=== PATIENT | male | born 1995 | race Caucasian/White ===

== ENCOUNTER 2020-04-23 05:39 | Emergency (ER) | payer OTHER, SELFPAY ==
[2020-04-23 05:41] VITALS: BP 125/87; PULSE 68; RESP 16; TEMP 36.7; O2SAT 99; BMI 29.1
--- NOTE | 2020-04-23 05:55 | ED_ITS ---
HPI - Skin/Abscess/Foreign Bdy General: Chief complaint: Skin/Abscess/Foreign Body Stated complaint: RASH Time Seen by Provider: 04/23/20 05:55 History of Present Illness: HPI narrative: Patient presents via EMS for a rash that has been waxing and waning for 2 days. Patient describes the rash as red and slightly raised. He states that this morning he looked in the mirror and his face was as red as if he had been sunburned. Patient denies any known exposure and denies any known allergens. MD complaint: rash Onset (ago): day(s) Tetanus up to date: unsure Location: generalized Severity: moderate Pain Consistency: now resolved Relieving factors: none Exacerbating factors: none Context: none Associated symptoms: Reports itching Review of Systems General: Reports: 10 or more systems reviewed and unremarkable except in HPI and below Physical Exam Const: COMMON NORMALS: no acute distress, patient oriented x3, no limitations and alert HENMT: COMMON NORMALS: normocephalic, atraumatic, external ears normal and Normal external nose present HEAD & SCALP: normocephalic and atraumatic FACE & SINUS: normal facial exam NOSE: Normal external nose present EXTERNAL EAR: Yes external ears normal MOUTH: Normal oral and palatal mucosa present Neck/C-Spine: COMMON NORMALS: full ROM, no lymphadenopathy, supple, no meningeal signs and no JVD GENERAL: Yes normal visual inspection Resp: COMMON NORMALS: normal respiratory effort, No retractions, No use of accessory muscles and clear to auscultation bilaterally AUSCULTATION: clear to auscultation bilaterally Cardio: COMMON NORMALS: no JVD, regular rate and regular rhythm RATE: regular rate RHYTHM: regular rhythm GI: COMMON NORMALS: Normal to inspection, nondistended, normoactive bowel sounds present, Soft to palpation, non-tender, No hepatosplenomegaly present and no masses INSPECTION: Yes normal to inspection AUSCULTATION: Yes normoactive bowel sounds PALPATION: Yes Soft to palpation and Yes No hepatosplenomegaly present PERCUSSION: normal to percussion : COMMON NORMALS: Yes no CVA tenderness BLADDER/KIDNEY EXAM: Yes no CVA tenderness Back/Pelvis: COMMON NORMALS: no CVA tenderness, thoracic and lumbar spine normal to inspection, no thoracic nor lumbar tenderness, thoraco-lumbar ROM normal and straight leg raise negative bilaterally Extremity: COMMON NORMALS: normal to inspection, full ROM, capillary refill normal, no joint enlargement, no clubbing, cyanosis or edema, no calf tenderness and no pedal edema Neuro: COMMON NORMALS: patient oriented x3, moves all extremities, no focal motor deficits and no sensory deficits noted SENSORIUM/ORIENTATION: Yes alert MENINGEAL SIGNS: Yes no meningeal signs Psych: COMMON NORMALS: mental status grossly normal, Normal thought process present, cooperative, normal affect and speech normal SPEECH: Yes normal speech THOUGHT PROCESS: Normal thought process present Skin: COMMON NORMALS: no wounds, turgor normal, no jaundice, no petechiae and no mottling NARRATIVE SKIN EXAM: Patient's abdomen has a slightly pink rash consistent with resolving hives. GENERAL SKIN EXAM: turgor normal Course Vital Signs: Vital signs: Vital Signs Temperature 98.1 F 04/23/20 05:41 Pulse Rate 68 04/23/20 05:41 Respiratory Rate 16 04/23/20 05:41 Blood Pressure 125/87 04/23/20 05:41 Pulse Oximetry 99 04/23/20 05:41 Discharge Plan Discharge Patient Disposition: Home, Self-Care Clinical Impression: Hives Allergic reaction Qualifiers: Encounter type: initial encounter Qualified Code(s): T78.40XA - Allergy, unspecified, initial encounter Condition: Stable Prescriptions: New prednisone 10 mg tablets,dose pack See Rx Instructions .ROUTE .COMPLEX Qty: 21 RF: 0 Discharge Orders: Discharge Order (Routine); Ordered 04/23/20 Ordered By: Segundo Rodarte Coding Level of Care Code ED Technical Service Rep for Ericg Fwd Exam Comprehensive
[2020-04-23] MEDS: famotidine 20 mg/2 mL INJ IVP (06:19)
[2020-04-23] MEDS: diphenhydrAMINE 50 mg/mL SDV 1mL IVP (06:19)
[2020-04-23 06:23] VITALS: BP 124/82; PULSE 69; RESP 16; O2SAT 99
== END 2020-04-23 06:24 | disposition home or self-care (01) ==
PROVIDERS: Emergency Provider Family Medicine
DX: L50.9 Urticaria, unspecified (principal); T78.40XA Allergy, unspecified, initial encounter
CPT/HCPCS: 12345; 96374; 96375; 99282; 99283; J1200; J2930; J3490

== ENCOUNTER 2020-04-24 08:14 | Inpatient (IN) | payer SELFPAY ==
[2020-04-24] VITALS (13 sets, daily range): BP systolic 111–144; BP diastolic 72–90; PULSE 74–86; RESP 16–20; TEMP 36.6–37.5; O2SAT 98–100; BMI 29.1
--- NOTE | 2020-04-24 08:24 | XRR_ITS ---
PROCEDURE INFORMATION: Exam: XR Chest, 1 View Exam date and time: 04/24/2020 8:44 AM Age: 24 years old Clinical indication: Other: Rash, itching x 2 days; Patient HX: PT C/O rash x 2 days. Face red as if sunburned. Nausea/vomiting; Additional info: Chest pain TECHNIQUE: Imaging protocol: XR of the chest Views: 1 view. COMPARISON: No relevant prior studies available. FINDINGS: Lungs: Unremarkable. No consolidation. Pleural space: Unremarkable. No pleural effusion. No pneumothorax. Heart/Mediastinum: Unremarkable. No cardiomegaly. Bones/joints: Unremarkable. XR/XR chest 1V portable [id number] IMPRESSION: No acute findings.
--- NOTE | 2020-04-24 08:29 | ED_ITS ---
Documented by User: STEFANY Grayson 04/24/20 11:48 HPI - General Adult General: Chief complaint: Nausea/Vomiting/Diarrhea Stated complaint: NAUSEA/ HIVES Time Seen by Provider: 04/24/20 08:24 Source: patient Mode of arrival: EMS Limitations: no limitations History of Present Illness: HPI narrative: Patient is a 24-year-old male who presents to ED today with a complaint of nausea and frequent vomiting. Patient states he was seen here yesterday for complaint of hives. He tells me rash had been present for approximately 2 days. He states his face was noted to be red at that visit. 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 Patient was treated with steroids and Benadryl while in the ED yesterday. Patient went home and was taking 50 mg of Benadryl every 6 hours. He states his rash has almost fully subsided. He states he was having complaints of nausea and vomiting at that time and since then has persisted. He is complaining now of a sore throat, chest pain, upper abdominal pain. Patient reports rare alcohol use. He does report daily use of Ibuprofen-when asked how much he takes on a daily basis he reports the maximum . Onset (ago): day(s) Associated symptoms: Reports chest pain, nausea, rash (improved) and vomiting; Deny dyspnea, headache(s), palpitations or syncope Review of Systems Const: Denies: fever(s) or chills Eyes: Denies: change in vision, blurry vision, photophobia, floaters or seeing flashes ENMT: Reports: throat pain and odynophagia Card: Reports: chest pain; Denies: palpitations, irregular heart rhythm, edema, swelling of feet/ankles, lightheadedness, syncope, pre-syncope, dyspnea on exertion or orthopnea Resp: Denies: dyspnea, productive cough, non-productive cough, hemoptysis or chest congestion GI: Reports: abdominal pain, nausea, vomiting, hematemesis and coffee ground emesis; Denies: change in bowel habits, pain on defecation, hematochezia or melena : Denies: flank pain, difficulty urinating, dysuria, urinary frequency, urinary urgency or urinary hesitancy Musc: Denies: neck pain or back pain Skin/Breast: Reports: rash (improved) Neuro: Denies: headache(s), numbness in extremities, weakness in extremities or sensory changes PFSH ED PFSH: Surgical History Spermatocele Status post repair Family History Other Diabetes Social History Smoking and tobacco status: never smoked Alcohol intake: current Alcohol intake frequency: 0-2 Drinks per Day Substance/Drug Use: never Physical Exam Const: COMMON NORMALS: patient oriented x3, no limitations and alert ORIENTATION/CONSCIOUSNESS: Yes oriented to person, Yes oriented to place and Yes oriented to time OTHER: nauseous, diaphoretic; pt noted with dark brown coffee ground emesis in his vomit bag upon arrival HENMT: COMMON NORMALS: normocephalic, atraumatic, hearing grossly normal bilaterally, external ears normal, Normal external nose present, Normal nasal mucous membranes and turbinates present, dentition normal and gingiva normal HEAD & SCALP: normal to inspection, normocephalic and atraumatic FACE & SINU S: normal facial exam and sinuses nontender NOSE: Normal external nose present and Normal nasal mucous membranes and turbinates present EXTERNAL E AR: Yes external ears normal THROAT: tonsils normal and posterior oropharynx abnormal erythema OTHER: salivating Eye: COMMON NORMALS: Equal, round and reactive pupils present, EOMs intact bilaterally, conjunctivae normal and no scleral icterus CONJUNCTIVA: Yes conjunctivae normal PUPIL: Yes Equal, round and reactive pupils present Chest: COMMONS NORMALS: normal inspection of the chest OTHER: TTP anterior chest Resp: COMMON NORMALS: normal respiratory effort and clear to auscultation bilaterally AUSCULTATION: clear to auscultation bilaterally Cardio: COMMON NORMALS: regular rate and regular rhythm RATE: regular rate RHYTHM: regular rhythm GI: COMMON NORMALS: Normal to inspection, nondistended, normoactive bowel sounds present, Soft to palpation, No hepatosplenomegaly present and no masses PALPATION: Yes Soft to palpation, Yes Tenderness to palpation present (GI) (epigastric ) and Yes No hepatosplenomegaly present Extremity: COMMON NORMALS: normal to inspection Neuro: GRICELDA COMA SCALE: document GCS findings Gricelda coma scale eye opening: Spontaneous Gricelda coma scale verbal response: Orientated Gricelda coma scale motor response: Obey commands [place] coma scale total score: 15 COMMON NORMALS: patient oriented x3, moves all extremities, no focal motor deficits and no sensory deficits noted SENSORIUM/ORIENTATION: Yes alert, Yes oriented to person, Yes oriented to place and Yes oriented to time Skin: COMMON NORMALS: no rashes or lesions noted NARRATIVE SKIN EXAM: slightly diaphoretic GENERAL SKIN EXAM: no rashes or lesions noted Course Vital Signs: Vital signs: Vital Signs Temperature 98.2 F 04/25/20 08:12 Pulse Rate 95 04/25/20 08:12 Respiratory Rate 16 04/25/20 08:12 Blood Pressure 121/83 04/25/20 08:12 Pulse Oximetry 95 04/25/20 08:12 MDM - General Adult MDM Narrative: Medical decision making narrative: emesis was gastrocculted and positive; he has had 8mg zofran and 25mg phenergan here and continues to vomit; pt will likely will require admission; will obtain CT imaging of his abdomen; pt mildly hypokalemic at 3.2-will order replacement; CT scan showing lots of distal esophageal edema; Dr. Tamayo will also evaluate patient and speak to physician salesperson stereo equipment for GI and hospitalist for admission Lab Data: Labs: Lab Results 04/24/20 04/24/20 04/24/20 Range/Units 01:52 08:40 08:40 WBC 19.9 H (4.0-10.0) 10^3/ uL RBC 4.89 (4.1-5.3) 10^6/u L Hgb 15.4 (11.7-16.6) g/dL Hct 43.8 (42.0-52.0) % MCV 89.6 (80-94) fL MCH 31.5 (28.0-34.0) pg MCHC 35.2 (30.0-36.0) g/dL RDW 11.9 L (12.1-15.1) % Plt Count 312 (130-400) 10^3/c mm MPV 10.7 H (7.4-10.4) fL Lymph % (Auto) Not Reportable [place] % (Auto) Not Reportable Lymph # (Auto) Not Reportable [place] # (Auto) Not Reportable Nucleated RBC % (a uto) 0 % Total Counted 100 (0-100) Atypical Lymphs % 5.0 (0-5) % Absolute Neutrophi ls 15.9 H (1.4-6.5) 10^3/c mm Segmented Neutroph ils 80 % Abs Segm Neuts (Ma n) 15.9 H (1.6-7.1) 10/cmm Band Neutrophils 0.0 % Abs Band Neuts (Ma n) 0.0 (0.0-1.2) 10^3/c mm Absolute Lymphocyt es 1.8 (1.2-3.4) 10^3/c mm Lymphocytes (Manua l) 4 % Monocytes (Manual) 11.0 % Absolute Monocytes 2.2 H (0.1-0.6) 10^3/c mm Nucleated RBCs # 0.0 /100WBC Platelet Estimate Normal (Normal) PT (10.5-13.3) SECO NDS INR (0.8-1.2) APTT (23.9-36.7) SECO NDS Sodium 141 (136-145) mmol/L Potassium 3.2 L (3.5-5.1) mmol/L Chloride 100 (98-107) mmol/L Carbon Dioxide 28 (22-29) mmol/L Anion Gap 16.2 (5-19) BUN 12 (6-20) mg/dL Creatinine 1.1 (0.7-1.2) mg/dL GFR Calculation 81.6 L (90-130) mL/min Glucose 142 H (65-115) mg/dL Calculated Osmolal ity 291 (285-295) mOsm/k g Lactic Acid (0.5-2.2) mmol/L Calcium 9.8 (8.5-10.5) mg/dL Total Bilirubin 0.7 (0.15-1.2) mg/dL AST 12 (0-40) U/L ALT 15 (0-41) U/L Alkaline Phosphata se 99 (40-130) IU/L Total Protein 7.2 (6.6-8.7) g/dL Albumin 4.6 (3.5-5.2) g/dL Globulin 2.6 (1.3-4.6) g/dL Lipase (13-60) U/L Urine Color Yellow (Yellow) Urine Appearance Clear (CLEAR) Urine pH 8 H (5-7) Ur Specific Gravit y 1.015 (1.005-1.030) Urine Protein Neg (Negative) Urine Glucose (UA) Norm (Normal) Urine Ketones Negative (Negative) Urine Blood Neg (Negative) Urine Nitrate Negative (Negative) Urine Bilirubin Neg (NEGATIVE) Prot Sulfosalicyli c Acd Positive (Negative) Urine Urobilinogen Norm (Negative) mg/dL Ur Leukocyte Yanira ase Negative (Negative) Urine RBC (0-2) /hpf Urine WBC (0-5) /hpf Ur Squamous Epith Cells (0-5) Amorphous Sediment Urine Bacteria (NONE) Urine Mucus Salicylates < 0.3 L (3-10) mg/dL Urine Opiates Scre en (Negative) ng/mL Acetaminophen < 5.0 L (10-30) ug/mL Ur Barbiturates Sc reen (Negative) ng/mL Ur Phencyclidine S crn (Negative) ng/mL Ur Amphetamines Sc reen (Negative) ng/mL U Benzodiazepines Scrn (Negative) ng/mL Urine Cocaine Scre en (Negative) ng/mL U Marijuana (THC) Screen (Negative) ng/mL 04/24/20 04/24/20 04/24/20 Range/Units 08:40 08:40 09:18 WBC (4.0-10.0) 10^3/ uL RBC (4.1-5.3) 10^6/u L Hgb (11.7-16.6) g/dL Hct (42.0-52.0) % MCV (80-94) fL MCH (28.0-34.0) pg MCHC (30.0-36.0) g/dL RDW (12.1-15.1) % Plt Count (130-400) 10^3/c mm MPV (7.4-10.4) fL Lymph % (Auto) [place] % (Auto) Lymph # (Auto) [place] # (Auto) Nucleated RBC % (a uto) % Total Counted (0-100) Atypical Lymphs % (0-5) % Absolute Neutrophi ls (1.4-6.5) 10^3/c mm Segmented Neutroph ils % Abs Segm Neuts (Ma n) (1.6-7.1) 10/cmm Band Neutrophils % Abs Band Neuts (Ma n) (0.0-1.2) 10^3/c mm Absolute Lymphocyt es (1.2-3.4) 10^3/c mm Lymphocytes (Manua l) % Monocytes (Manual) % Absolute Monocytes (0.1-0.6) 10^3/c mm Nucleated RBCs # /100WBC Platelet Estimate (Normal) PT 14.70 H (10.5-13.3) SECO NDS INR 1.11 (0.8-1.2) APTT 25.0 (23.9-36.7) SECO NDS Sodium (136-145) mmol/L Potassium (3.5-5.1) mmol/L Chloride (98-107) mmol/L Carbon Dioxide (22-29) mmol/L Anion Gap (5-19) BUN (6-20) mg/dL Creatinine (0.7-1.2) mg/dL GFR Calculation (90-130) mL/min Glucose (65-115) mg/dL Calculated Osmolal ity (285-295) mOsm/k g Lactic Acid (0.5-2.2) mmol/L Calcium (8.5-10.5) mg/dL Total Bilirubin (0.15-1.2) mg/dL AST (0-40) U/L ALT (0-41) U/L Alkaline Phosphata se (40-130) IU/L Total Protein (6.6-8.7) g/dL Albumin (3.5-5.2) g/dL Globulin (1.3-4.6) g/dL Lipase 20 (13-60) U/L Urine Color (Yellow) Urine Appearance (CLEAR) Urine pH (5-7) Ur Specific Gravit y (1.005-1.030) Urine Protein (Negative) Urine Glucose (UA) (Normal) Urine Ketones (Negative) Urine Blood (Negative) Urine Nitrate (Negative) Urine Bilirubin (NEGATIVE) Prot Sulfosalicyli c Acd (Negative) Urine Urobilinogen (Negative) mg/dL Ur Leukocyte Yanira ase (Negative) Urine RBC (0-2) /hpf Urine WBC (0-5) /hpf Ur Squamous Epith Cells (0-5) Amorphous Sediment Urine Bacteria (NONE) Urine Mucus Salicylates (3-10) mg/dL Urine Opiates Scre en Negative (Negative) ng/mL Acetaminophen (10-30) ug/mL Ur Barbiturates Sc reen Negative (Negative) ng/mL Ur Phencyclidine S crn Negative (Negative) ng/mL Ur Amphetamines Sc reen Negative (Negative) ng/mL U Benzodiazepines Scrn Negative (Negative) ng/mL Urine Cocaine Scre en Negative (Negative) ng/mL U Marijuana (THC) Screen Negative (Negative) ng/mL 04/24/20 04/24/20 Range/Units 09:18 10:49 WBC (4.0-10.0) 10^3/ uL RBC (4.1-5.3) 10^6/u L Hgb (11.7-16.6) g/dL Hct (42.0-52.0) % MCV (80-94) fL MCH (28.0-34.0) pg MCHC (30.0-36.0) g/dL RDW (12.1-15.1) % Plt Count (130-400) 10^3/c mm MPV (7.4-10.4) fL Lymph % (Auto) [place] % (Auto) Lymph # (Auto) [place] # (Auto) Nucleated RBC % (a uto) % Total Counted (0-100) Atypical Lymphs % (0-5) % Absolute Neutrophi ls (1.4-6.5) 10^3/c mm Segmented Neutroph ils % Abs Segm Neuts (Ma n) (1.6-7.1) 10/cmm Band Neutrophils % Abs Band Neuts (Ma n) (0.0-1.2) 10^3/c mm Absolute Lymphocyt es (1.2-3.4) 10^3/c mm Lymphocytes (Manua l) % Monocytes (Manual) % Absolute Monocytes (0.1-0.6) 10^3/c mm Nucleated RBCs # /100WBC Platelet Estimate (Normal) PT (10.5-13.3) SECO NDS INR (0.8-1.2) APTT (23.9-36.7) SECO NDS Sodium (136-145) mmol/L Potassium (3.5-5.1) mmol/L Chloride (98-107) mmol/L Carbon Dioxide (22-29) mmol/L Anion Gap (5-19) BUN (6-20) mg/dL Creatinine (0.7-1.2) mg/dL GFR Calculation (90-130) mL/min Glucose (65-115) mg/dL Calculated Osmolal ity (285-295) mOsm/k g Lactic Acid 2.7 H (0.5-2.2) mmol/L Calcium (8.5-10.5) mg/dL Total Bilirubin (0.15-1.2) mg/dL AST (0-40) U/L ALT (0-41) U/L Alkaline Phosphata se (40-130) IU/L Total Protein (6.6-8.7) g/dL Albumin (3.5-5.2) g/dL Globulin (1.3-4.6) g/dL Lipase (13-60) U/L Urine Color Yellow (Yellow) Urine Appearance Clear (CLEAR) Urine pH 7 (5-7) Ur Specific Gravit y 1.015 (1.005-1.030) Urine Protein Neg (Negative) Urine Glucose (UA) Norm (Normal) Urine Ketones 1+ H (Negative) Urine Blood Neg (Negative) Urine Nitrate Negative (Negative) Urine Bilirubin 1+ H (NEGATIVE) Prot Sulfosalicyli c Acd (Negative) Urine Urobilinogen 1 H (Negative) mg/dL Ur Leukocyte Yanira ase Trace H (Negative) Urine RBC 0-4 H (0-2) /hpf Urine WBC 15-25 H (0-5) /hpf Ur Squamous Epith Cells 0-4 H (0-5) Amorphous Sediment 1+ Urine Bacteria 3+ H (NONE) Urine Mucus 3+ Salicylates (3-10) mg/dL Urine Opiates Scre en (Negative) ng/mL Acetaminophen (10-30) ug/mL Ur Barbiturates Sc reen (Negative) ng/mL Ur Phencyclidine S crn (Negative) ng/mL Ur Amphetamines Sc reen (Negative) ng/mL U Benzodiazepines Scrn (Negative) ng/mL Urine Cocaine Scre en (Negative) ng/mL U Marijuana (THC) Screen (Negative) ng/mL Imaging Data^: CXR: Radiologist's impression: [address] [place] [address] XRay Report Signed Patient: Hi Robbins Unit #: [id number] : 1995 Age/Sex: 24 / M ADM Date: 04/24/20 Loc: ER Room/Bed: Attending Dr: Ordering Provider/Ordering MD: Dorita Soliman Date of Service: 04/24/20 Procedure(s): XR chest 1V portable [id number] Accession Number(s): [id number] Report Number: [id number] PROCEDURE INFORMATION: Exam: XR Chest, 1 View Exam date and time: 04/24/2020 8:44 AM Age: 24 years old Clinical indication: Other: Rash, itching x 2 days; Patient HX: PT C/O rash x 2 days. Face red as if sunburned. Nausea/vomiting; Additional info: Chest pain TECHNIQUE: Imaging protocol: XR of the chest Views: 1 view. COMPARISON: No relevant prior studies available. FINDINGS: Lungs: Unremarkable. No consolidation. Pleural space: Unremarkable. No pleural effusion. No pneumothorax. Heart/Mediastinum: Unremarkable. No cardiomegaly. Bones/joints: Unremarkable. XR/XR chest 1V portable [id number] IMPRESSION: No acute findings. Dictated By: Lamont Jc MD Signed By: Lamont Jc MD Signed Date/Time: 04/24/20955 DD/ 3 CT Abd/Pel: Radiologist's impression: [place] [address] CT Scan Report Signed Patient: Hi Robbins Unit #: [id number] : 1995 Age/Sex: 24 / M ADM Date: 04/24/20 Loc: ER Room/Bed: Attending Dr: Ordering Provider/Ordering MD: Andrew Tamayo DO Date of Service: 04/24/20 Procedure(s): CT abdomen pelvis w con* [id number] Accession Number(s): [id number] Report Number: [id number] WS: [id number] CT ABDOMEN AND PELVIS WITH CONTRAST HISTORY: Persistent nausea and vomiting. TECHNIQUE: Imaging performed of the abdomen and pelvis with IV contrast. Single phase imaging of the abdomen. Coronal and sagittal reformats are submitted. All CT scans at [facility] use at least one of these dose optimization techniques: automated exposure control; mA and/or kV adjustment per patient size (includes targeted exams where dose is matched to clinical indication); or iterative reconstruction. IV CONTRAST: Omnipaque 300; 95 mL IV. Oral contrast: No DLP: 982.92 mGy.cm COMPARISON: 06/14/2011 Lower thorax: Lung bases are clear. Heart is normal size. Circumferential thickening of the distal esophagus. There is also small hiatal hernia. These findings are new since 2010. Liver/biliary system: Normal size with no intrahepatic dilatation. Gallbladder: Gallbladder is contracted. Pancreas: Normal. Spleen: Normal. Adrenal glands: Normal. Right kidney: Normal. Left kidney: Normal. Aorta: Normal. Lymphadenopathy: Small RIGHT lower quadrant lymph nodes. Free fluid: None. GI tract: Normal appendix. There is mild constipation. No significant diverticular disease. Abdominal wall: Small fat-containing umbilical hernia. Pelvis: Normal. Bones: Unremarkable. Notified Andrew Tamayo DO at 04/24/2020 11:[address]/CT abdomen pelvis w con* [id number] IMPRESSION: 1. Circumferential distal esophageal wall thickening and edema. May be related to the patient's excessive vomiting. There is no pleural effusion or evidence for perforation at this time. 2. RIGHT lower quadrant lymph nodes, likely from mesenteric adenitis. 3. No ascites. Dictated By: Sherrill Temple DO Signed By: Sherrill Temple DO Signed Date/Time: 04/24/20 1116 DD/ 1101 Discharge Plan Discharge Patient Disposition: Admitted As Inpatient Admit Provider: Augusto Watt Clinical Impression: Coffee ground emesis, Hypokalemia, NSAID induced gastritis Condition: Stable Referrals: Sourav Morrow MD [Physician] - (Return to surgery office in 2 weeks to schedule an appointment for a repeat diagnostic EGD.) Discharge Diet: As Directed Discharge Activity: Resume usual activity Additional Instructions: Raise the head of the bed 4-6 inches Frequent small meals through the day Avoid smoking or Chewing Tobacco Avoid excess coffee, tea, and other caffeinated beverages Avoid garments that fit tightly through the abdomen Avoid eating before going to sleep Avoid nonsteroidal anti-inflammatory drugs (NSAIDs) when possible Anti-reflux diet Anti-reflux medications as prescribed Emphasis on weight management Discharge Date/Time: 04/24/20 13:35 Coding Level of Care Code ED Shot Peening Operator for Chg Fwd Exam Comprehensive Documented by User: Andrew Tamayo DO 04/25/20 12:26 HPI - General Adult General: Chief complaint: Nausea/Vomiting/Diarrhea Stated complaint: NAUSEA/ HIVES Time Seen by Provider: 04/24/20 08:24 History of Present Illness: HPI narrative: 24-year-old male comes in complaining of persistent nausea and vomiting. He has coffee-ground emesis which he tells me started at 1645 2 days ago April 22. He denies any hematemesis denies any hematochezia or melenic stools. He is very sedated from medications he received after initially seeing our PA. He was Gastroccult positive his he moglobin is stable on the CT he has a significantly rotation of the distal esophagus without perforation. Onset (ago): day(s) (2) Location: abdomen Radiation: non-radiation Severity: severe Quality: burning Pain Consistency: constant Relieving factors: none Exacerbating factors: none Associated symptoms: Reports chest pain, decreased appetite, malaise, nausea, vomiting and weakness; Deny dyspnea Treatments prior to arrival: NSAID (Patient has been taking large amounts of ibuprofen up to 2400 or more milligrams per day) Review of Systems Const: Reports: malaise ENMT: Reports: throat pain; Denies: ear or mastoid pain, nasal discharge or nasal congestion Card: Reports: chest pain; Denies: edema, dyspnea on exertion or orthopnea Resp: Denies: dyspnea, productive cough or non-productive cough GI: Reports: abdominal pain, nausea, vomiting, coffee ground emesis and heartburn : Denies: flank pain, dysuria, urinary frequency or urinary urgency Skin/Breast: Denies: pruritus PFSH ED PFSH: Surgical History Spermatocele Status post repair Family History Other Diabetes Social History Smoking and tobacco status: never smoked Alcohol intake: current Alcohol intake frequency: 0-2 Drinks per Day Substance/Drug Use: never Physical Exam Const: COMMON NORMALS: no acute distress GENERAL APPEARANCE: cooperative, disheveled, lethargic and other (Coffee-ground emesis) ORIENTATION/CONSCIOUSNESS: Yes awake, Yes oriented to person, Yes oriented to place, Yes oriented to time and Yes lethargic Eye: COMMON NORMALS: Equal, round and reactive pupils present, EOMs intact bi laterally, conjunctivae normal and no scleral icterus CONJUNCTIVA: Yes conjunctivae normal PUPIL: Yes Equal, round and reactive pupils present Neck/C-Spine: COMMON NORMALS: full ROM, no lymphadenopathy, supple and no JVD Lymph: LYMPHATIC: no lymphadenopathy noted and no lymphedema noted Resp: COMMON NORMALS: normal respiratory effort, No retractions, No use of accessory muscles and clear to auscultation bilaterally AUSCULTATION: clear to auscultation bilaterally Cardio: COMMON NORMALS: no JVD, regular rate, regular rhythm and No murmurs present (Cardio) RATE: regular rate RHYTHM: regular rhythm GI: COMMON NORMALS: Soft to palpation and No hepatosplenomegaly present AUSCULTATION: Yes normoactive bowel sounds PALPATION: Yes Soft to palpation, Yes Tenderness to palpation present (GI) (Epigastrium), No Guarding due to palpation present (GI) and Yes No hepatosplenomegaly present Extremity: COMMON NORMALS: normal to inspection, capillary refill normal, no clubbing, cyanosis or edema, no calf tenderness and no pedal edema Neuro: SENSORIUM/ORIENTATION: Yes oriented to person, Yes oriented to place, Yes oriented to time and Yes lethargic Skin: COMMON NORMALS: no rashes or lesions noted GENERAL SKIN EXAM: no rashes or lesions noted Course Vital Signs: Vital signs: Vital Signs Temperature 98.2 F 04/25/20 08:12 Pulse Rate 95 04/25/20 08:12 Respiratory Rate 16 04/25/20 08:12 Blood Pressure 121/83 04/25/20 08:12 Pulse Oximetry 95 04/25/20 08:12 MDM - General Adult MDM Narrative: Medical decision making narrative: Gastroccult positive with a stable hemoglobin he will be admitted for recurrent nausea and vomiting suspected upper GI bleed based on laboratory findings and gastrocolic positive emesis. We will keep him n.p.o. IV PPI surgery consult for possible EGD. It is a little concerning the amount of inflammation and swelling noted on the CT of the distal esophagus will review with hospitalist and admit. Lab Data: Labs: Lab Results 04/24/20 04/24/20 04/24/20 Range/Units 01:52 08:40 08:40 WBC 19.9 H (4.0-10.0) 10^3/ uL RBC 4.89 (4.1-5.3) 10^6/u L Hgb 15.4 (11.7-16.6) g/dL Hct 43.8 (42.0-52.0) % MCV 89.6 (80-94) fL MCH 31.5 (28.0-34.0) pg MCHC 35.2 (30.0-36.0) g/dL RDW 11.9 L (12.1-15.1) % Plt Count 312 (130-400) 10^3/c mm MPV 10.7 H (7.4-10.4) fL Lymph % (Auto) Not Reportable [place] % (Auto) Not Reportable Lymph # (Auto) Not Reportable [place] # (Auto) Not Reportable Nucleated RBC % (a uto) 0 % Total Counted 100 (0-100) Atypical Lymphs % 5.0 (0-5) % Absolute Neutrophi ls 15.9 H (1.4-6.5) 10^3/c mm Segmented Neutroph ils 80 % Abs Segm Neuts (Ma n) 15.9 H (1.6-7.1) 10/cmm Band Neutrophils 0.0 % Abs Band Neuts (Ma n) 0.0 (0.0-1.2) 10^3/c mm Absolute Lymphocyt es 1.8 (1.2-3.4) 10^3/c mm Lymphocytes (Manua l) 4 % Monocytes (Manual) 11.0 % Absolute Monocytes 2.2 H (0.1-0.6) 10^3/c mm Nucleated RBCs # 0.0 /100WBC Platelet Estimate Normal (Normal) PT (10.5-13.3) SECO NDS INR (0.8-1.2) APTT (23.9-36.7) SECO NDS Sodium 141 (136-145) mmol/L Potassium 3.2 L (3.5-5.1) mmol/L Chloride 100 (98-107) mmol/L Carbon Dioxide 28 (22-29) mmol/L Anion Gap 16.2 (5-19) BUN 12 (6-20) mg/dL Creatinine 1.1 (0.7-1.2) mg/dL GFR Calculation 81.6 L (90-130) mL/min Glucose 142 H (65-115) mg/dL Calculated Osmolal ity 291 (285-295) mOsm/k g Lactic Acid (0.5-2.2) mmol/L Calcium 9.8 (8.5-10.5) mg/dL Total Bilirubin 0.7 (0.15-1.2) mg/dL AST 12 (0-40) U/L ALT 15 (0-41) U/L Alkaline Phosphata se 99 (40-130) IU/L Total Protein 7.2 (6.6-8.7) g/dL Albumin 4.6 (3.5-5.2) g/dL Globulin 2.6 (1.3-4.6) g/dL Lipase (13-60) U/L Urine Color Yellow (Yellow) Urine Appearance Clear (CLEAR) Urine pH 8 H (5-7) Ur Specific Gravit y 1.015 (1.005-1.030) Urine Protein Neg (Negative) Urine Glucose (UA) Norm (Normal) Urine Ketones Negative (Negative) Urine Blood Neg (Negative) Urine Nitrate Negative (Negative) Urine Bilirubin Neg (NEGATIVE) Prot Sulfosalicyli c Acd Positive (Negative) Urine Urobilinogen Norm (Negative) mg/dL Ur Leukocyte Yanira ase Negative (Negative) Urine RBC (0-2) /hpf Urine WBC (0-5) /hpf Ur Squamous Epith Cells (0-5) Amorphous Sediment Urine Bacteria (NONE) Urine Mucus Salicylates < 0.3 L (3-10) mg/dL Urine Opiates Scre en (Negative) ng/mL Acetaminophen < 5.0 L (10-30) ug/mL Ur Barbiturates Sc reen (Negative) ng/mL Ur Phencyclidine S crn (Negative) ng/mL Ur Amphetamines Sc reen (Negative) ng/mL U Benzodiazepines Scrn (Negative) ng/mL Urine Cocaine Scre en (Negative) ng/mL U Marijuana (THC) Screen (Negative) ng/mL 04/24/20 04/24/20 04/24/20 Range/Units 08:40 08:40 09:18 WBC (4.0-10.0) 10^3/ uL RBC (4.1-5.3) 10^6/u L Hgb (11.7-16.6) g/dL Hct (42.0-52.0) % MCV (80-94) fL MCH (28.0-34.0) pg MCHC (30.0-36.0) g/dL RDW (12.1-15.1) % Plt Count (130-400) 10^3/c mm MPV (7.4-10.4) fL Lymph % (Auto) [place] % (Auto) Lymph # (Auto) [place] # (Auto) Nucleated RBC % (a uto) % Total Counted (0-100) Atypical Lymphs % (0-5) % Absolute Neutrophi ls (1.4-6.5) 10^3/c mm Segmented Neutroph ils % Abs Segm Neuts (Ma n) (1.6-7.1) 10/cmm Band Neutrophils % Abs Band Neuts (Ma n) (0.0-1.2) 10^3/c mm Absolute Lymphocyt es (1.2-3.4) 10^3/c mm Lymphocytes (Manua l) % Monocytes (Manual) % Absolute Monocytes (0.1-0.6) 10^3/c mm Nucleated RBCs # /100WBC Platelet Estimate (Normal) PT 14.70 H (10.5-13.3) SECO NDS INR 1.11 (0.8-1.2) APTT 25.0 (23.9-36.7) SECO NDS Sodium (136-145) mmol/L Potassium (3.5-5.1) mmol/L Chloride (98-107) mmol/L Carbon Dioxide (22-29) mmol/L Anion Gap (5-19) BUN (6-20) mg/dL Creatinine (0.7-1.2) mg/dL GFR Calculation (90-130) mL/min Glucose (65-115) mg/dL Calculated Osmolal ity (285-295) mOsm/k g Lactic Acid (0.5-2.2) mmol/L Calcium (8.5-10.5) mg/dL Total Bilirubin (0.15-1.2) mg/dL AST (0-40) U/L ALT (0-41) U/L Alkaline Phosphata se (40-130) IU/L Total Protein (6.6-8.7) g/dL Albumin (3.5-5.2) g/dL Globulin (1.3-4.6) g/dL Lipase 20 (13-60) U/L Urine Color (Yellow) Urine Appearance (CLEAR) Urine pH (5-7) Ur Specific Gravit y (1.005-1.030) Urine Protein (Negative) Urine Glucose (UA) (Normal) Urine Ketones (Negative) Urine Blood (Negative) Urine Nitrate (Negative) Urine Bilirubin (NEGATIVE) Prot Sulfosalicyli c Acd (Negative) Urine Urobilinogen (Negative) mg/dL Ur Leukocyte Yanira ase (Negative) Urine RBC (0-2) /hpf Urine WBC (0-5) /hpf Ur Squamous Epith Cells (0-5) Amorphous Sediment Urine Bacteria (NONE) Urine Mucus Salicylates (3-10) mg/dL Urine Opiates Scre en Negative (Negative) ng/mL Acetaminophen (10-30) ug/mL Ur Barbiturates Sc reen Negative (Negative) ng/mL Ur Phencyclidine S crn Negative (Negative) ng/mL Ur Amphetamines Sc reen Negative (Negative) ng/mL U Benzodiazepines Scrn Negative (Negative) ng/mL Urine Cocaine Scre en Negative (Negative) ng/mL U Marijuana (THC) Screen Negative (Negative) ng/mL 04/24/20 04/24/20 Range/Units 09:18 10:49 WBC (4.0-10.0) 10^3/ uL RBC (4.1-5.3) 10^6/u L Hgb (11.7-16.6) g/dL Hct (42.0-52.0) % MCV (80-94) fL MCH (28.0-34.0) pg MCHC (30.0-36.0) g/dL RDW (12.1-15.1) % Plt Count (130-400) 10^3/c mm MPV (7.4-10.4) fL Lymph % (Auto) [place] % (Auto) Lymph # (Auto) [place] # (Auto) Nucleated RBC % (a uto) % Total Counted (0-100) Atypical Lymphs % (0-5) % Absolute Neutrophi ls (1.4-6.5) 10^3/c mm Segmented Neutroph ils % Abs Segm Neuts (Ma n) (1.6-7.1) 10/cmm Band Neutrophils % Abs Band Neuts (Ma n) (0.0-1.2) 10^3/c mm Absolute Lymphocyt es (1.2-3.4) 10^3/c mm Lymphocytes (Manua l) % Monocytes (Manual) % Absolute Monocytes (0.1-0.6) 10^3/c mm Nucleated RBCs # /100WBC Platelet Estimate (Normal) PT (10.5-13.3) SECO NDS INR (0.8-1.2) APTT (23.9-36.7) SECO NDS Sodium (136-145) mmol/L Potassium (3.5-5.1) mmol/L Chloride (98-107) mmol/L Carbon Dioxide (22-29) mmol/L Anion Gap (5-19) BUN (6-20) mg/dL Creatinine (0.7-1.2) mg/dL GFR Calculation (90-130) mL/min Glucose (65-115) mg/dL Calculated Osmolal ity (285-295) mOsm/k g Lactic Acid 2.7 H (0.5-2.2) mmol/L Calcium (8.5-10.5) mg/dL Total Bilirubin (0.15-1.2) mg/dL AST (0-40) U/L ALT (0-41) U/L Alkaline Phosphata se (40-130) IU/L Total Protein (6.6-8.7) g/dL Albumin (3.5-5.2) g/dL Globulin (1.3-4.6) g/dL Lipase (13-60) U/L Urine Color Yellow (Yellow) Urine Appearance Clear (CLEAR) Urine pH 7 (5-7) Ur Specific Gravit y 1.015 (1.005-1.030) Urine Protein Neg (Negative) Urine Glucose (UA) Norm (Normal) Urine Ketones 1+ H (Negative) Urine Blood Neg (Negative) Urine Nitrate Negative (Negative) Urine Bilirubin 1+ H (NEGATIVE) Prot Sulfosalicyli c Acd (Negative) Urine Urobilinogen 1 H (Negative) mg/dL Ur Leukocyte Yanira ase Trace H (Negative) Urine RBC 0-4 H (0-2) /hpf Urine WBC 15-25 H (0-5) /hpf Ur Squamous Epith Cells 0-4 H (0-5) Amorphous Sediment 1+ Urine Bacteria 3+ H (NONE) Urine Mucus 3+ Salicylates (3-10) mg/dL Urine Opiates Scre en (Negative) ng/mL Acetaminophen (10-30) ug/mL Ur Barbiturates Sc reen (Negative) ng/mL Ur Phencyclidine S crn (Negative) ng/mL Ur Amphetamines Sc reen (Negative) ng/mL U Benzodiazepines Scrn (Negative) ng/mL Urine Cocaine Scre en (Negative) ng/mL U Marijuana (THC) Screen (Negative) ng/mL Discharge Plan Discharge Patient Disposition: Admitted As Inpatient Admit Provider: Augusto Watt Clinical Impression: Coffee ground emesis, Hypokalemia, NSAID induced gastritis Condition: Stable Referrals: Sourav Morrow MD [Physician] - (Return to surgery office in 2 weeks to schedule an appointment for a repeat diagnostic EGD.) Discharge Diet: As Directed Discharge Activity: Resume usual activity Additional Instructions: Raise the head of the bed 4-6 inches Frequent small meals through the day Avoid smoking or Chewing Tobacco Avoid excess coffee, tea, and other caffeinated beverages Avoid garments that fit tightly through the abdomen Avoid eating before going to sleep Avoid nonsteroidal anti-inflammatory drugs (NSAIDs) when possible Anti-reflux diet Anti-reflux medications as prescribed Emphasis on weight management Discharge Date/Time: 04/24/20 13:35 Coding 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
[2020-04-24 08:55] LABS: Hematocrit 43.8 % (42.0-52.0); Hemoglobin 15.4 g/dL (11.7-16.6); Mean Corpuscular HGB Conc 35.2 g/dL (30.0-36.0); Mean Corpuscular Hemoglobin 31.5 pg (28.0-34.0); Mean Corpuscular Volume 89.6 fL (80-94); Mean Platelet Volume 10.7 fL (7.4-10.4); Nucleated Red Blood Cells % 0 %; Platelet Count 312 10^3/cmm (130-400); Red Blood Count 4.89 10^6/uL (4.1-5.3); Red Cell Distribution Width 11.9 % (12.1-15.1); White Blood Count 19.9 10^3/uL (4.0-10.0)
[2020-04-24] MEDS: promethazine 25 mg/mL SDV 1 mL IM (08:59)
[2020-04-24 09:08] LABS: Alanine Aminotransferase 15 U/L (0-41); Albumin Level 4.6 g/dL (3.5-5.2); Alkaline Phosphatase 99 IU/L (40-130); Anion Gap 16.2 (5-19); Aspartate Amino Transferase 12 U/L (0-40); Blood Urea Nitrogen 12 mg/dL (6-20); Calcium 9.8 mg/dL (8.5-10.5); Carbon Dioxide 28 mmol/L (22-29); Chloride 100 mmol/L (98-107); Globulin 2.6 g/dL (1.3-4.6); Glomerular Filtration Rate 81.6 mL/min (90-130); Glucose 142 mg/dL (65-115); Osmolality Calculated 291 mOsm/kg (285-295); Potassium 3.2 mmol/L (3.5-5.1); Sodium 141 mmol/L (136-145); Total Bilirubin 0.7 mg/dL (0.15-1.2); Total Protein 7.2 g/dL (6.6-8.7)
[2020-04-24 09:23] LABS: Slide Review Slide Review Perform
[2020-04-24 09:24] LABS: Absolute Segmented Neutrophil 15.9 10/cmm (1.6-7.1); Lymphocytes 4 %; Lymphocytes Absolute 1.8 10^3/cmm (1.2-3.4); Monocytes Absolute 2.2 10^3/cmm (0.1-0.6); Segmented Neutrophils 80 %; Total Cells Counted 100 (0-100)
[2020-04-24 09:25] LABS: Absolute Neutrophil 15.9 10^3/cmm (1.4-6.5); Acetaminophen < 5.0 ug/mL (10-30); Platelet Estimate Normal (Normal); Salicylate < 0.3 mg/dL (3-10)
[2020-04-24] MEDS: pantoprazole 40 mg SDV 80 MG IVP (09:27)
--- NOTE | 2020-04-24 09:46 | CT_ITS ---
WS: [id number] CT ABDOMEN AND PELVIS WITH CONTRAST HISTORY: Persistent nausea and vomiting. TECHNIQUE: Imaging performed of the abdomen and pelvis with IV contrast. Single phase imaging of the abdomen. Coronal and sagittal reformats are submitted. All CT scans at [facility] use at least one of these dose optimization techniques: automated exposure control; mA and/or kV adjustment per patient size (includes targeted exams where dose is matched to clinical indication); or iterativ e reconstruction. IV CONTRAST: Omnipaque 300; 95 mL IV. Oral contrast: No DLP: 982.92 mGy.cm COMPARISON: 06/14/2011 Lower thorax: Lung bases are clear. Heart is normal size. Circumferential thickening of the distal es ophagus. There is also small hiatal hernia. These findings are new since 2010. Liver/biliary system: Normal size with no intrahepatic dilatation. Gallbladder: Gallbladder is contracted. Pancreas: Normal. Spleen: Normal. Adrenal glands: Normal. Right kidney: Normal. Left kidney: Normal. Aorta: Normal. Lymphadenopathy: Small RIGHT lower quadrant lymph nodes. Free fluid: None. GI tract: Normal appendix. There is mild constipation. No significant diverticular disease. Abdominal wall: Small fat-containing umbilical hernia. Pelvis: Normal. Bones: Unremarkable. Notified Andrew Tamayo DO at 04/24/2020 11:[address]/CT abdomen pelvis w con* [id number] IMPRESSION: 1. Circumferential distal esophageal wall thickening and edema. May be related to the patient's excessive vomiting. There is no pleural effusion or evidence for perforation at this time. 2. RIGHT lower quadrant lymph nodes, likely from mesenteric adenitis. 3. No ascites.
[2020-04-24 10:18] LABS: INR 1.11 (0.8-1.2)
[2020-04-24 10:26] LABS: Glucose Urine UA Norm (Normal); Ketones Urine 1+ (Negative); Protein Urine Neg (Negative); Specific Gravity, Urine 1.015 (1.005-1.030); Urine Appearance Clear (CLEAR); Urine Color Yellow (Yellow); pH Urine 7 (5-7)
[2020-04-24 10:27] LABS: Add Urine Microscopic? YES; Bilirubin Urine 1+ (NEGATIVE); Blood Urine Neg (Negative); Leukocyte Esterase Urine Trace (Negative); Nitrate Urine Negative (Negative); Urobilinogen Urine 1 mg/dL (Negative)
[2020-04-24 10:29] LABS: Amphetamines Screen Urine Negative (Negative); Barbiturates Screen Urine Negative (Negative); Benzodiazepines Screen Urine Negative (Negative); Cocaine Screen Urine Negative (Negative); Opiate Screen Urine Negative (Negative); PCP Screen Urine Negative (Negative); THC Screen Urine Negative (Negative)
[2020-04-24 10:30] LABS: RBC Urine 0-4 /hpf (0-2); Squamous Epithelial Cell Urine 0-4 (0-5); WBC Urine 15-25 /hpf (0-5)
[2020-04-24 10:31] LABS: Add Urine Culture? Yes; Amorphous Sediment Urine 1+; Bacteria Urine 3+; Mucus Urine 3+
[2020-04-24] MEDS: morphine 4 mg/mL SDV 1 mL IVP (10:33)
[2020-04-24] MEDS: LORazepam 2 mg/mL INJ 1 mL 1 MG IVP (10:41)
[2020-04-24] MEDS: potassium chloride premix 40 MEQ/100 ML PREMIX 25 MEQ IV (10:48)
[2020-04-24] MEDS: iohexol 300 mg/mL 100 mL Btl IV (10:53)
[2020-04-24 11:02] LABS: Lipase 20 U/L (13-60)
[2020-04-24 11:08] LABS: Lactic Sepsis W/Reflex 2.7 mmol/L (0.5-2.2)
--- NOTE | 2020-04-24 11:18 | PC.NURSE ---
Provider discontinued metoclopramide. Medication not given.
--- NOTE | 2020-04-24 12:39 | P.HP_ITS ---
Providers/Chief Complaint Chief Complaint: NAUSEA/ HIVES History of Present Illness Hi Robbins is a 24 year old male who presents to the emergency department with history of vomiting since yesterday, coffee ground. He was recently seen at the hospital in the ER yesterday, where he was diagnosed with a rash and given prednisone. The patient reports that he takes ibuprofen as well about 800 mg 3 times a day as needed. He denies any significant alcohol intake, reporting he drinks very rarely. He denies any fever, cough, exposure to COVID. He has not had any bright red blood in his stool. He reports he does not usually have any issues with any ulcers, peptic ulcer disease, severe heartburn. Review of Systems General: Reports: 10 or more systems reviewed and unremarkable except in HPI and below Const: Denies: fever(s) or chills Eyes: Denies: change in vision ENMT: Denies: throat pain Card: Denies: chest pain Resp: Denies: dyspnea GI: Reports: nausea, vomiting and coffee ground emesis; Denies: abdominal pain : Denies: flank pain Musc: Denies: neck pain Skin/Breast: Denies: rash Neuro: Denies: headache(s) Psych: Denies: anxiety Endo: Denies: polyuria [place]/Lymph: Denies: easy bruising All/Imm: Denies: urticaria Medications/Allergies Home Medications Medication Instructions Recorded Confirmed Last Taken Type prednisone See Rx Instructions .ROUTE 04/23/20 04/24/20 Unknown Rx .COMPLEX #21 each Equate Heartburn Medication See Rx Instructions .ROUTE .COMPLEX 04/24/20 04/24/20 Unknown History diphenhydramine HCl [Benadryl] 25 - 50 mg PO PRN 04/24/20 04/24/20 04/24/20 History 25 mg hydrocortisone [Cortisone See Rx Instructions .ROUTE .COMPLEX 04/24/20 04/24/20 Unknown History (hydrocortisone)] ibuprofen 800 mg PO PRN 04/24/20 04/24/20 Unknown History Allergies Allergy/AdvReac Type Severity Reaction Status Date / Time No Known Allergies Allergy Verified 04/24/20 08:33 PFSH Acute PFSH: Surgical History (Updated 04/24/20 @ 12:44 by Augusto Watt MD) Spermatocele Status post repair Family History (Updated 04/24/20 @ 12:45 by Augusto Watt MD) Other Diabetes Social History (Updated 04/24/20 @ 12:45 by Augusto Watt MD) Smoking and tobacco status: never smoked Alcohol intake: current Alcohol intake frequency: 0-2 Drinks per Day Substance/Drug Use: never Vitals/I&O/Wt Last Vital Signs Temp 98.2 F 04/24/20 08:14 Pulse 86 04/24/20 12:00 Resp 16 04/24/20 12:00 BP 118/72 04/24/20 12:00 Pulse Ox 98 04/24/20 12:00 Weight last 48 hrs Weight 97.522 kg Physical Exam Narrative: EXAM NARRATIVE: General exam is a white male, with emesis basin with some coffee-ground emesis by bedside HEENT: Pupils equally round. Oropharynx clear. Neck is supple no lymphadenopathy or thyromegaly Cardiovascular regular rate and rhythm without murmur, no S3 or S4 Lungs clear no wheezing or crackles Abdomen is soft. Slight tenderness right upper quadrant. was deferred Extremities no cyanosis clubbing or edema, cap refill brisk Skin no rash Neuro no obvious focal deficits. Data : 04/24/20 08:40 04/24/20 08:40 Other data: INR normal. LFTs normal Lactic acid 2.7 Glucose slightly high. However, patient has been receiving steroids Urinalysis with 15-25 white blood cells, 0-4 reds and 3+ bacteria Lipase normal Salicylate and acetaminophen level as well as urine drug screen negative Chest x-ray no acute infiltrate CT demonstrates distal esophageal thickening and edema, right lower quadrant enlarged lymph nodes A&P Assessment and plan (1) Upper GI bleed: Risk factors include anti-inflammatory use, steroid use recently Initiate Protonix drip N.p.o. Surgery consultation Repeat hemoglobin at 1300 Repeat laboratory tomorrow Hydration Nausea control Status: Acute Additional A&P Information Elevated glucose. Likely secondary steroids, stress. 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
[2020-04-24 13:33] LABS: Hematocrit 46.7 % (42.0-52.0); Hemoglobin 15.7 g/dL (11.7-16.6)
--- NOTE | 2020-04-24 14:55 | P.CONIM_ITS ---
Providers/Reason For Consult Consulting Physican/Specialty*: Sourav Morrow MD Reason for Consult*: Coffee-ground emesis Requesting Physcian: Dr. 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 Heart is normal size. Circumferential thickening of the distal esophagus. There is also small hiatal hernia. These findings are new since 2010. Liver/biliary system: Normal size with no intrahepatic dilatation. Gallbladder: Gallbladder is contracted. Pancreas: Normal. Spleen: Normal. Adrenal glands: Normal. Right kidney: Normal. Left kidney: Normal. Aorta: Normal. Lymphadenopathy: Small RIGHT lower quadrant lymph nodes. Free fluid: None. GI tract: Normal appendix. There is mild constipation. No significant diverticular disease. Abdominal wall: Small fat-containing umbilical hernia. Pelvis: Normal. Bones: Unremarkable. Notified Andrew Tamayo DO at 04/24/2020 11:[address]/CT abdomen pelvis w con* [id number] IMPRESSION: 1. Circumferential distal esophageal wall thickening and edema. May be related to the patient's excessive vomiting. There is no pleural effusion or evidence for perforation at this time. 2. RIGHT lower quadrant lymph nodes, likely from mesenteric adenitis. 3. No ascites. Patient denies any previous history of similar episodes or previous endoscopies, he does recall previous right groin surgery and he is taking a lot of ibuprofen lately whenever he gets pain, patient denies any bleeding per rectum. During talking with the patient I did appreciate hoarseness of voice. General surgery was consulted for further evaluation potential intervention in the form of diagnostic EGD Review of Systems General: Reports: 10 or more systems reviewed and unremarkable except in HPI and below Meds/Allergies Home Medications and Allergies Home Medications Medication Instructions Recorded Confirmed Last Taken Type prednisone See Rx Instructions .ROUTE 04/23/20 04/24/20 Unknown Rx .COMPLEX #21 each Equate Heartburn Medication See Rx Instructions .ROUTE .COMPLEX 04/24/20 04/24/20 Unknown History diphenhydramine HCl [Benadryl] 25 - 50 mg PO PRN 04/24/20 04/24/20 04/24/20 History 25 mg hydrocortisone [Cortisone See Rx Instructions .ROUTE .COMPLEX 04/24/20 04/24/20 Unknown History (hydrocortisone)] ibuprofen 800 mg PO PRN 04/24/20 04/24/20 Unknown History Allergies Allergy/AdvReac Type Severity Reaction Status Date / Time No Known Allergies Allergy Verified 04/24/20 16:58 PFSH Acute PFSH: Surgical History Spermatocele Status post repair Family History Other Diabetes Social History Smoking and tobacco status: never smoked Alcohol intake: current Alcohol intake frequency: 0-2 Drinks per Day Substance/Drug Use: never Vitals/I&O/Wt Last Vital Signs Temp 97.9 F 04/24/20 13:35 Pulse 79 04/24/20 14:28 Resp 16 04/24/20 13:35 BP 113/76 04/24/20 13:35 Pulse Ox 98 04/24/20 14:28 Weight last 48 hrs Weight 215 lb Physical Exam Narrative: EXAM NARRATIVE: Patient is conscious alert oriented X3 BMI 29 Head and neck examination PERRLA no masses no cervical lymphadenopathy no jaundice Cardiac examination audible S1-S2 no murmurs no gallops no arrhythmias Chest is clear bilateral,abscence of Rhonchi or wheezes,no surgical emphysema Abdomen nontender nondistended soft no organomegaly guarding or rigidity/no signs of peritonitis Skin rashes noted on the abdominal wall Extremities no cyanosis no clubbing no edema A&P Assessment and plan (1) Upper GI bleed: Plan of care; After thorough history and physical examination and reviewing the chart and reviewing the CT scan images with my personal interpretation, plan to perform a diagnostic esophagogastroduodenoscopy with possible biopsy in the GI lab. I discussed with the patient in detail the risk particularly potential esophageal perforation due to the thickened and inflamed distal esophagus that may require future surgical intervention and feeding access,benefits,alternatives and indications.The risk of aspiration, bleeding, soft tissue injury, perforation of the stomach/esophagus and other potential concomitant complications were explained to the patient in details.The patient understood this well and did agree to proceed. Rationale was carefully and clearly discussed with the patient.Appropriate informed consent have been reviewed and signed PPI therapy Serial H&H Patient can have clear liquid diet from surgical standpoint of view and n.p.o. after midnight Assurance and education All questions have been answered and all concerns have been addressed to patient's satisfaction. Status: Acute Consult Attestations Medical Necessity Statement: Per hospitalist service Time Spent in Patient Care: (>than 50% of time spent in counselling and/or direct pt care on unit) . 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
[2020-04-24] MEDS: D5-NS 0.45% + KCL 20 mEq 20 MEQ/1,000 ML BAG 100 MEQ IV (15:26)
[2020-04-24] MEDS: pantoprazole 40 MG in sodium chloride 0.9% (plus) 100 ML 20 MG IV (15:28)
[2020-04-24] MEDS: cefTRIAXone 1,000 MG in sodium chloride 0.9% (plus) 50 ML 100 MG IV (15:28)
[2020-04-24] MEDS: diphenhydrAMINE 50 mg/mL SDV 1mL 25 MG IVP (20:35)
[2020-04-25] VITALS: BP 118/73; PULSE 83; RESP 18; TEMP 36.8; O2SAT 99
[2020-04-25 02:04] LABS: Add Urine Microscopic? NO
[2020-04-25 02:17] LABS: Bilirubin Urine Neg (NEGATIVE); Blood Urine Neg (Negative); Glucose Urine UA Norm (Normal); Ketones Urine Negative (Negative); Leukocyte Esterase Urine Negative (Negative); Nitrate Urine Negative (Negative); Protein Urine Neg (Negative); Specific Gravity, Urine 1.015 (1.005-1.030); Sulfosalicylic Acid Urine Positive (Negative); Urine Appearance Clear (CLEAR); Urine Color Yellow (Yellow); Urobilinogen Urine Norm (Negative); pH Urine 8 (5-7)
[2020-04-25] MEDS: D5-NS 0.45% + KCL 20 mEq 20 MEQ/1,000 ML BAG 100 MEQ IV ×3 (02:22→23:50)
[2020-04-25 04:00] VITALS: BP 113/66; PULSE 78; RESP 17; TEMP 36.6; O2SAT 98
[2020-04-25 05:26] LABS: Basophils % 0.3 %; Eosinophils % 0.1 %; Hemoglobin 14.4 g/dL (11.7-16.6); Lymphocytes # 2.2 10^3/uL (0.8-4.8); Lymphocytes % 13.9 %; Mean Corpuscular HGB Conc 33.5 g/dL (30.0-36.0); Mean Corpuscular Hemoglobin 31.5 pg (28.0-34.0); Mean Corpuscular Volume 94.1 fL (80-94); Mean Platelet Volume 10.6 fL (7.4-10.4); Monocytes # 1.1 10^3/uL (0.2-0.9); Neutrophils # 12.17 10^3/uL (1.8-7.7); Neutrophils % 78.2 %; Nucleated Red Blood Cells % 0 %; Platelet Count 247 10^3/cmm (130-400); Red Blood Count 4.57 10^6/uL (4.1-5.3); Red Cell Distribution Width 12.4 % (12.1-15.1); White Blood Count 15.6 10^3/uL (4.0-10.0)
[2020-04-25 05:45] LABS: Alanine Aminotransferase 13 U/L (0-41); Alkaline Phosphatase 81 IU/L (40-130); Anion Gap 13.5 (5-19); Aspartate Amino Transferase 13 U/L (0-40); Blood Urea Nitrogen 11 mg/dL (6-20); Calcium 8.8 mg/dL (8.5-10.5); Carbon Dioxide 28 mmol/L (22-29); Chloride 100 mmol/L (98-107); Globulin 2.5 g/dL (1.3-4.6); Glucose 109 mg/dL (65-115); Osmolality Calculated 283 mOsm/kg (285-295); Potassium 3.5 mmol/L (3.5-5.1); Sodium 138 mmol/L (136-145); Total Bilirubin 0.8 mg/dL (0.15-1.2); Total Protein 6.5 g/dL (6.6-8.7)
--- NOTE | 2020-04-25 07:30 | PC.NURSE ---
Patient to GI lab at this time.
--- NOTE | 2020-04-25 07:44 | P.ANESASSM_ITS ---
Pre-Anesthetic Assessment Pre-Anesthetic Assessment: Height/Weight: Height 1.83 m Weight 97.522 kg Temp Pulse Resp BP Pulse Ox 97.9 F 78 17 113/66 98 04/25/20 04:00 04/25/20 04:00 04/25/20 04:00 04/25/20 04:00 04/25/20 04:00 Preop Diagnosis: Hematemesis Proposed Procedure: Operation Date: 04/25/20 08:00 Proposed Procedures p EGD(Not Applicable) - Sourav Morrow MD Familial anesthetic complications: none Was Beta Tomas taken within 24 hours: N/A Last intake: 2099 Last Intake: 21:00 Social: Social History: No alcohol and No tobacco Exam: Pre-Anes Outpt Exam: alert, oriented x 3, clear to auscultation bilate rally and regular rate & rhythm Airway: Submandibular: WNL Cervical ROM: WNL MP: 2 Dentition: Full Pulmonary: Pulmonary: None reported CV/HEM: Comments: CP on admission. : : None reported Hepatic: Hepatic: None reported GI: GI: GERD Metabolic: Metabolic: None reported Musc/skel: Musc/skel: None reported Neuropsych: Neuropsych: Anxiety and Dementia Anesthetic Plan: ASA status: 1 Anesthesia: Anesthesia Evaluation and MAC Risk of > 500 ml blood loss (7ml/kg in children): No Meds/Allergies Current Medications: Current Medications Generic Name Dose Route Start Last Admin Trade Name Freq PRN Reason Stop Dose Admin Potassium Chloride /Dextrose/Sod Cl 20 meq in 1,000 m ls @ 100 mls/hr 04/24/20 13:46 04/25/20 02:22 D5-Ns 0.45% + Aniceto l 20 Meq IV 100 mls/hr .Q10H MARK Administration PFSH Anesthesia PFSH: Surgical History Spermatocele Status post repair Family History Other Diabetes Social History Smoking and tobacco status: never smoked Alcohol intake: current Alcohol intake frequency: 0-2 Drinks per Day Substance/Drug Use: never Data Anesthesia CBC & Chem 7: 04/25/20 05:03 04/25/20 05:03 Other Labs: Laboratory Results - last 48 hr 04/24/20 04/24/20 04/24/20 01:52 08:40 08:40 WBC 19.9 H RBC 4.89 Hgb 15.4 Hct 43.8 MCV 89.6 MCH 31.5 MCHC 35.2 RDW 11.9 L Plt Count 312 MPV 10.7 H Neut % (Auto) Lymph % (Auto) Not Reportable [place] % (Auto) Not Reportable Eos % (Auto) Baso % (Auto) Neut # (Auto) Lymph # (Auto) Not Reportable [place] # (Auto) Not Reportable Eos # (Auto) Baso # (Auto) Nucleated RBC % (auto) 0 Total Counted 100 Atypical Lymphs % 5.0 Absolute Neutrophils 15.9 H Segmented Neutrophils 80 Abs Segm Neuts (Man) 15.9 H Band Neutrophils 0.0 Abs Band Neuts (Man) 0.0 Absolute Lymphocytes 1.8 Lymphocytes (Manual) 4 Monocytes (Manual) 11.0 Absolute Monocytes 2.2 H Nucleated RBCs # 0.0 Platelet Estimate Normal PT INR APTT Sodium 141 Potassium 3.2 L Chloride 100 Carbon Dioxide 28 Anion Gap 16.2 BUN 12 Creatinine 1.1 GFR Calculation 81.6 L Glucose 142 H Calculated Osmolality 291 Lactic Acid Calcium 9.8 Total Bilirubin 0.7 AST 12 ALT 15 Alkaline Phosphatase 99 Total Protein 7.2 Albumin 4.6 Globulin 2.6 Lipase Urine Color Yellow Urine Appearance Clear Urine pH 8 H Ur Specific [place] 1.015 Urine Protein Neg Urine Glucose (UA) Norm Urine Ketones Negative Urine Blood Neg Urine Nitrate Negative Urine Bilirubin Neg Prot Sulfosalicylic Acd Positive Urine Urobilinogen Norm Ur Leukocyte Esterase Negative Urine RBC Urine WBC Ur Squamous Epith Cells Amorphous Sediment Urine Bacteria Urine Mucus Salicylates < 0.3 L Urine Opiates Screen Acetaminophen < 5.0 L Ur Barbiturates Screen Ur Phencyclidine Scrn Ur Amphetamines Screen U Benzodiazepines Scrn Urine Cocaine Screen U Marijuana (THC) Screen 04/24/20 04/24/20 04/24/20 08:40 08:40 09:18 WBC RBC Hgb Hct MCV MCH MCHC RDW Plt Count MPV Neut % (Auto) Lymph % (Auto) [place] % (Auto) Eos % (Auto) Baso % (Auto) Neut # (Auto) Lymph # (Auto) [place] # (Auto) Eos # (Auto) Baso # (Auto) Nucleated RBC % (auto) Total Counted Atypical Lymphs % Absolute Neutrophils Segmented Neutrophils Abs Segm Neuts (Man) Band Neutrophils Abs Band Neuts (Man) Absolute Lymphocytes Lymphocytes (Manual) Monocytes (Manual) Absolute Monocytes Nucleated RBCs # Platelet Estimate PT 14.70 H INR 1.11 APTT 25.0 Sodium Potassium Chloride Carbon Dioxide Anion Gap BUN Creatinine GFR Calculation Glucose Calculated Osmolality Lactic Acid Calcium Total Bilirubin AST ALT Alkaline Phosphatase Total Protein Albumin Globulin Lipase 20 Urine Color Urine Appearance Urine pH Ur Specific [place] Urine Protein Urine Glucose (UA) Urine Ketones Urine Blood Urine Nitrate Urine Bilirubin Prot Sulfosalicylic Acd Urine Urobilinogen Ur Leukocyte Esterase Urine RBC Urine WBC Ur Squamous Epith Cells Amorphous Sediment Urine Bacteria Urine Mucus Salicylates Urine Opiates Screen Negative Acetaminophen Ur Barbiturates Screen Negative Ur Phencyclidine Scrn Negative Ur Amphetamines Screen Negative U Benzodiazepines Scrn Negative Urine Cocaine Screen Negative U Marijuana (THC) Screen Negative 04/24/20 04/24/20 04/24/20 09:18 10:49 13:27 WBC RBC Hgb 15.7 Hct 46.7 MCV MCH MCHC RDW Plt Count MPV Neut % (Auto) Lymph % (Auto) [place] % (Auto) Eos % (Auto) Baso % (Auto) Neut # (Auto) Lymph # (Auto) [place] # (Auto) Eos # (Auto) Baso # (Auto) Nucleated RBC % (auto) Total Counted Atypical Lymphs % Absolute Neutrophils Segmented Neutrophils Abs Segm Neuts (Man) Band Neutrophils Abs Band Neuts (Man) Absolute Lymphocytes Lymphocytes (Manual) Monocytes (Manual) Absolute Monocytes Nucleated RBCs # Platelet Estimate PT INR APTT Sodium Potassium Chloride Carbon Dioxide Anion Gap BUN Creatinine GFR Calculation Glucose Calculated Osmolality Lactic Acid 2.7 H Calcium Total Bilirubin AST ALT Alkaline Phosphatase Total Protein Albumin Globulin Lipase Urine Color Yellow Urine Appearance Clear Urine pH 7 Ur Specific [place] 1.015 Urine Protein Neg Urine Glucose (UA) Norm Urine Ketones 1+ H Urine Blood Neg Urine Nitrate Negative Urine Bilirubin 1+ H Prot Sulfosalicylic Acd Urine Urobilinogen 1 H Ur Leukocyte Esterase Trace H Urine RBC 0-4 H Urine WBC 15-25 H Ur Squamous Epith Cells 0-4 H Amorphous Sediment 1+ Urine Bacteria 3+ H Urine Mucus 3+ Salicylates Urine Opiates Screen Acetaminophen Ur Barbiturates Screen Ur Phencyclidine Scrn Ur Amphetamines Screen U Benzodiazepines Scrn Urine Cocaine Screen U Marijuana (THC) Screen 04/25/20 04/25/20 05:03 05:03 WBC 15.6 H RBC 4.57 Hgb 14.4 Hct 43.0 MCV 94.1 H D MCH 31.5 MCHC 33.5 RDW 12.4 Plt Count 247 MPV 10.6 H Neut % (Auto) 78.2 Lymph % (Auto) 13.9 [place] % (Auto) 7.0 Eos % (Auto) 0.1 Baso % (Auto) 0.3 Neut # (Auto) 12.17 H Lymph # (Auto) 2.2 [place] # (Auto) 1.1 H Eos # (Auto) 0.0 Baso # (Auto) 0.0 Nucleated RBC % (auto) 0 Total Counted Atypical Lymphs % Absolute Neutrophils Segmented Neutrophils Abs Segm Neuts (Man) Band Neutrophils Abs Band Neuts (Man) Absolute Lymphocytes Lymphocytes (Manual) Monocytes (Manual) Absolute Monocytes Nucleated RBCs # 0.0 Platelet Estimate PT INR APTT Sodium 138 Potassium 3.5 Chloride 100 Carbon Dioxide 28 Anion Gap 13.5 BUN 11 Creatinine 1.0 GFR Calculation 91.0 Glucose 109 Calculated Osmolality 283 L Lactic Acid Calcium 8.8 Total Bilirubin 0.8 AST 13 ALT 13 Alkaline Phosphatase 81 Total Protein 6.5 L Albumin 4.0 Globulin 2.5 Lipase Urine Color Urine Appearance Urine pH Ur Specific [place] Urine Protein Urine Glucose (UA) Urine Ketones Urine Blood Urine Nitrate Urine Bilirubin Prot Sulfosalicylic Acd Urine Urobilinogen Ur Leukocyte Esterase Urine RBC Urine WBC Ur Squamous Epith Cells Amorphous Sediment Urine Bacteria Urine Mucus Salicylates Urine Opiates Screen Acetaminophen Ur Barbiturates Screen Ur Phencyclidine Scrn Ur Amphetamines Screen U Benzodiazepines Scrn Urine Cocaine Screen U Marijuana (THC) Screen Cardiac Studies: No Data to Display
[2020-04-25] MEDS: sodium chloride 0.9% 1,000 ML 30 ML IV (07:47)
[2020-04-25 08:12] VITALS: BP 121/83; PULSE 95; RESP 16; TEMP 36.8; O2SAT 95
--- NOTE | 2020-04-25 08:29 | ANE.PACU2 ---
Inpatient post-anesthesia follow up: Airway intact: Yes Vital signs: Temperature 98.2 F Pulse Rate [Monito r] 75 Pulse Rate 95 Respiratory Rate 16 Blood Pressure [Ri ght Arm] 144/80 Blood Pressure 121/83 Pulse Oximetry 95 Oxygen Delivery Me thod [ Room Air Current Rate & Del aarti] Oxygen Delivery Me thod Nasal Cannula Oxygen Flow Rate 2 Fraction of Inspir ed Oxygen Hydration adequate: Yes Nausea and vomiting: No Pain level: 1 Mental status: Baseline
--- NOTE | 2020-04-25 09:00 | PC.NURSE ---
Patient returned from EGD at this time.
--- NOTE | 2020-04-25 09:33 | PM.PN ---
Subjective Subjective: Interval history: Hi reports he feels a little bit better. He underwent an EGD this morning, demonstrating severe esophagitis. He denies any nausea this morning. Medications: Reviewed: Yes Vitals/I&O/Wt Last Vital Signs Temp 98.2 F 04/25/20 08:12 Pulse 95 04/25/20 08:12 Resp 16 04/25/20 08:12 BP 121/83 04/25/20 08:12 Pulse Ox 95 04/25/20 08:12 04/24/20 04/25/20 04/25/20 22:59 06:59 14:59 Intake Total 290 / 390 1000 / 1390 100 / 100 Output Total 400 / 400 Balance 290 / 390 600 / 990 100 / 100 Weight last 48 hrs Weight 97.522 kg Physical Exam Narrative: EXAM NARRATIVE: General exam no apparent distress Cardiovascular regular rate and rhythm without murmur, no S3 or S4 Lungs clear no wheezing or crackles Abdomen is soft. Positive bowel sounds Extremities no cyanosis clubbing or edema, cap refill brisk Data : 04/25/20 05:03 04/25/20 05:03 Micro: Microbiology 04/24/20 09:18 Urine Culture - Preliminary Urine,Clean Catch A&P Assessment and plan (1) Upper GI bleed: Risk factors include anti-inflammatory use, steroid use recently Endoscopy showed severe esophagitis Clear liquid diet started. Will advance as tolerated Change Protonix to IV twice daily Repeat laboratory tomorrow Status: Acute Additional A&P Information Elevated glucose. Likely secondary steroids, stress. Repeat glucose normal Possible UTI. Continue Rocephin started in the ER. Await culture Full code Low risk for DVTs, no prophylaxis Probable discharge tomorrow if diet can be advanced. 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
[2020-04-25] MEDS: cefTRIAXone 1,000 MG in sodium chloride 0.9% (plus) 50 ML 100 MG IV (11:12)
[2020-04-25] MEDS: pantoprazole 40 mg SDV IVP ×2 (11:12→21:30)
[2020-04-25 12:00] VITALS: BP 109/73; PULSE 88; RESP 18; TEMP 37.3; O2SAT 98
[2020-04-25] MEDS: diphenhydrAMINE 25 mg Capsule PO (14:43)
[2020-04-25] MEDS: acetaminophen 325 mg Tablet 650 MG PO ×2 (14:43→21:13)
[2020-04-25 15:55] VITALS: BP 106/71; PULSE 81; RESP 16; TEMP 37.4; O2SAT 97
[2020-04-25 20:00] VITALS: BP 110/68; PULSE 85; RESP 17; TEMP 37.3; O2SAT 97
[2020-04-26] VITALS: BP 122/65; PULSE 76; RESP 17; TEMP 37.1; O2SAT 96
[2020-04-26 04:00] VITALS: BP 118/73; PULSE 72; RESP 18; TEMP 36.9; O2SAT 98
[2020-04-26 05:49] LABS: Basophils % 0.4 %; Eosinophils # 0.3 10^3/uL (0.0-0.8); Hematocrit 38.3 % (42.0-52.0); Hemoglobin 12.6 g/dL (11.7-16.6); Lymphocytes # 2.1 10^3/uL (0.8-4.8); Mean Corpuscular HGB Conc 32.9 g/dL (30.0-36.0); Mean Corpuscular Hemoglobin 31.4 pg (28.0-34.0); Mean Corpuscular Volume 95.5 fL (80-94); Mean Platelet Volume 11.3 fL (7.4-10.4); Monocytes # 0.6 10^3/uL (0.2-0.9); Monocytes % 6.3 %; Neutrophils # 6.31 10^3/uL (1.8-7.7); Neutrophils % 67.8 %; Nucleated Red Blood Cells % 0 %; Platelet Count 215 10^3/cmm (130-400); Red Blood Count 4.01 10^6/uL (4.1-5.3); White Blood Count 9.3 10^3/uL (4.0-10.0)
--- NOTE | 2020-04-26 06:10 | PC.NURSE ---
SHIFT SUMMARY Has rested well tonight. Is hoping to go home today. Medicated X1 with po Tylenol for a headache. Has some tenderness in upper epigastric area.
[2020-04-26 06:12] LABS: Alanine Aminotransferase 10 U/L (0-41); Albumin Level 3.6 g/dL (3.5-5.2); Alkaline Phosphatase 79 IU/L (40-130); Anion Gap 11.6 (5-19); Aspartate Amino Transferase 12 U/L (0-40); Blood Urea Nitrogen 6 mg/dL (6-20); Calcium 8.8 mg/dL (8.5-10.5); Carbon Dioxide 26 mmol/L (22-29); Chloride 103 mmol/L (98-107); Creatinine Clr Calc Pharmacy 151.8582; Globulin 2.3 g/dL (1.3-4.6); Glomerular Filtration Rate 102.8 mL/min (90-130); Glucose 108 mg/dL (65-115); Osmolality Calculated 280 mOsm/kg (285-295); Potassium 3.6 mmol/L (3.5-5.1); Sodium 137 mmol/L (136-145); Total Bilirubin 0.6 mg/dL (0.15-1.2); Total Protein 5.9 g/dL (6.6-8.7)
[2020-04-26 07:42] VITALS: BP 113/74; PULSE 71; RESP 16; TEMP 36.9; O2SAT 97
--- NOTE | 2020-04-26 08:40 | P.PN_ITS ---
Subjective Subjective: Interval history: Patient overall is doing well and tolerating p.o. intake Stable H&H Vitals/I&O/Wt Last Vital Signs Temp 98.5 F 04/26/20 07:42 Pulse 71 04/26/20 07:42 Resp 16 04/26/20 07:42 BP 113/74 04/26/20 07:42 Pulse Ox 97 04/26/20 07:42 04/25/20 04/26/20 04/26/20 22:59 06:59 14:59 Intake Total 740 / 2240 1108.333 / 3348.333 Output Total 400 / 800 500 / 1300 425 / 425 Balance 340 / 1440 608.333 / 2048.333 -425 / -425 Physical Exam Narrative: EXAM NARRATIVE: Patient is conscious alert oriented X3 BMI 29 Head and neck examination PERRLA no masses no cervical lymphadenopathy no jaundice Abdomen nontender nondistended soft no organomegaly guarding or rigidity/no signs of peritonitis Data : 04/26/20 04:45 04/26/20 04:45 Micro: Microbiology 04/24/20 09:18 Urine Culture - Preliminary Urine,Clean Catch A&P Assessment and plan (1) Upper GI bleed: Surgical standpoint of view patient can be discharged home today with advancement of gastric diet as tolerated Raise the head of the bed 4-6 inches Frequent small meals through the day Avoid smoking or Chewing Tobacco Avoid excess coffee, tea, and other caffeinated beverages Avoid garments that fit tightly through the abdomen Avoid eating before going to sleep Avoid nonsteroidal anti-inflammatory drugs (NSAIDs) when possible Anti-reflux diet Anti-reflux medications as prescribed Emphasis on weight management Avoid stress Return to surgery office in 2 weeks to discuss repeat diagnostic EGD Assurance and education All questions have been answered and all concerns have been addressed to patient's satisfaction. Status: Acute Attestations Medical Necessity Statement*: Per hospitalist service Time Spent in Patient Care: (>than 50% of time spent in counselling and/or direct pt care on unit) . 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
--- NOTE | 2020-04-26 09:06 | P.DS_ITS ---
Discharge Providers Date of Admission: 04/24/20 12:09 Date of Discharge: April 26, 2020 Attending Provider at Admission: Augusto Watt MD Attending Provider at Discharge: Augusto Watt MD Diagnoses at Discharge Discharge Diagnosis (1) Upper GI bleed: Status: Acute Problem details: Resolved. Reason for Visit Reason for Visit: NAUSEA/ HIVES Hospital Course Hospital Course: Hi presented to the hospital with vomiting coffee-ground emesis. There was concern for upper GI bleed. He was placed on a Protonix drip, and surgery consulted. He received an EGD on April 25, demonstrating distal esophagitis gastritis and duodenitis. By April 26 his hemoglobin was stable, he was taking p.o. without evidence of vomiting, and ready to go home. He was counseled to slowly increase diet, avoid caffeine and nicotine, not take any anti-inflammatories. Physical Exam Narrative: EXAM NARRATIVE: General exam no apparent distress Cardiovascular regular rate and rhythm without murmur Lungs clear Abdomen is soft with positive bowel sounds Extremities no cyanosis clubbing or edema. Discharge Data Data Completed and Pending: Completed Studies During Hospitalization Category Date Time Status CT abdomen pelvis w con* [id number] Stat Cat Scan 04/24/20 09:46 Completed XR chest 1V [place] ble [id number] Urgent Exams 04/24/20 08:24 Completed Pending at discharge Category Date Time Status Urine Culture Sta t Lab 04/24/20 09:18 Results Labs from last 24 hours 04/26/20 04/26/20 04:45 04:45 WBC 9.3 RBC 4.01 L Hgb 12.6 Hct 38.3 L MCV 95.5 H MCH 31.4 MCHC 32.9 RDW 12.0 L Plt Count 215 MPV 11.3 H Neut % (Auto) 67.8 Lymph % (Auto) 22.0 [place] % (Auto) 6.3 Eos % (Auto) 3.0 Baso % (Auto) 0.4 Neut # (Auto) 6.31 Lymph # (Auto) 2.1 [place] # (Auto) 0.6 Eos # (Auto) 0.3 Baso # (Auto) 0.0 Nucleated RBC % (a uto) 0 Nucleated RBCs # 0.0 Sodium 137 Potassium 3.6 Chloride 103 Carbon Dioxide 26 Anion Gap 11.6 BUN 6 Creatinine 0.9 GFR Calculation 102.8 Glucose 108 Calculated Osmolal ity 280 L Calcium 8.8 Total Bilirubin 0.6 AST 12 ALT 10 Alkaline Phosphata se 79 Total Protein 5.9 L Albumin 3.6 Globulin 2.3 Vitals: Last Vital Signs Temp 98.5 F 04/26/20 07:42 Pulse 71 04/26/20 07:42 Resp 16 04/26/20 07:42 BP 113/74 04/26/20 07:42 Pulse Ox 97 04/26/20 07:42 Discharge Plan Discharge Patient Disposition: Home Condition: Stable Prescriptions: New sucralfate [Carafate] 100 mg/mL suspension 1 gm PO TID 28 Days Qty: 840 RF: 0 pantoprazole [Protonix] 40 mg tablet,delayed release (DR/EC) 40 mg PO BID Qty: 60 RF: 0 Continued Cortisone (hydrocortisone) 1 % Cream See Rx Instructions .ROUTE .COMPLEX RF: 0 Benadryl 25 mg Capsule 25 - 50 mg PO PRN RF: 0 Discontinued prednisone 10 mg tablets,dose pack See Rx Instructions .ROUTE .COMPLEX Qty: 21 RF: 0 ibuprofen 200 mg Tablet 800 mg PO PRN RF: 0 Equate Heartburn Medication See Rx Instructions .ROUTE .COMPLEX RF: 0 Discharge Orders: Discharge Order (Routine); Ordered 04/26/20 Ordered By: Augusto Watt Referrals: Sourav Morrow MD [Physician] - 2 weeks (Return to surgery office in 2 weeks to schedule an appointment for a repeat diagnostic EGD.) Discharge Diet: As Directed Discharge Activity: Resume usual activity Activity Restrictions/Additional Instructions: Raise the head of the bed 4-6 inches Frequent small meals through the day Avoid smoking or Chewing Tobacco Avoid excess coffee, tea, and other caffeinated beverages Avoid garments that fit tightly through the abdomen Avoid eating before going to sleep Avoid nonsteroidal anti-inflammatory drugs (NSAIDs) when possible Anti-reflux diet Anti-reflux medications as prescribed Emphasis on weight management [facility] Gradually increase diet, soft, bland foods. Return for any worsening Avoid nicotine, caffeine Do not take any anti-inflammatories. 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
[2020-04-26 09:48] VITALS: BP 113/74; PULSE 71; RESP 16; TEMP 36.9; O2SAT 97
--- NOTE | 2020-04-26 09:49 | PC.NURSE ---
Reviewed patient discharge with patient at this time. Patient verbalized understanding of follow up appointments and prescriptions. Work note giving and patient verbalized understanding of that as well. IV removed intact. Patient tolerated well. Patient is A&Ox3. Respirations even and non-labored on room air. Patient wheel chaired to private car.
[2020-04-27 07:16] LABS: H. Pylori / CLO Test Negative
--- NOTE | 2020-04-27 11:29 | PC.SOCIAL ---
Clarified with pharmacy Rylan chew to change capsules to tablets. NO further questions voiced.
[2020-04-28 22:51] LABS: H. Pylori / CLO Test Negative
== END 2020-04-26 11:00 | disposition home or self-care (01) | DRG 379 ==
LOC: ER 11:48 → MEDSURG 12:49
PROVIDERS: Family Medicine; Surgery; Admitting Provider Internal Medicine; Emergency Provider Physician Assistant; Visit Provider Internal Medicine
PROC: 0DJ08ZZ Inspection of Upper Intestinal Tract, Via Natural or Artificial Opening Endoscopic (ICD-10-PCS; CPT 43235; principal; 2020-04-25 08:00)
DX: K92.2 Gastrointestinal hemorrhage, unspecified (principal); K21.9 Gastro-esophageal reflux disease without esophagitis; K44.9 Diaphragmatic hernia without obstruction or gangrene
CPT/HCPCS: 12345; 36415; 43239; 71045; 74177; 80053; 80306; 80307; 81001; 81003; 83605; 83690; 85007; 85014; 85018; 85025; 85610; 85730; 87077; 87086; 96372; 96375; 99283; C9113; J0696; J1200; J2060; J2270; J2550; J3480; J7030; Q9967